=== PATIENT | male | born 1995 | race Caucasian/White ===

== ENCOUNTER 2020-02-11 12:39 | Emergency (ER) | payer OTHER ==
[~2020-02-11] VITALS: Ht 182.9 cm; Wt 113.4 kg
[2020-02-11 13:17] LABS: APPEARANCE,URINE Clear (CLEAR); BILIRUBIN,URINE SMALL (NEGATIVE); BLOOD, URINE Negative Ery/uL (NEGATIVE); COLOR,URINE Yellow (YELLOW); KETONES,URINE Negative (NEGATIVE); LEUKOCYTE ESTERASE ,URINE Negative (NEGATIVE); NITRITE, URINE Negative (NEGATIVE); PH,URINE 6.5 (5.0-8.0); PROTEIN,URINE Negative (NEGATIVE); UGLUCOSE Negative (NEGATIVE)
--- NOTE | 2020-02-11 13:19 | NUR ---
PATIENT REFUSED TO HAVE BLOOD WORKS DONE. DR. BENDER MADE AWARE. PATIENT GAVE A URINE SAMPLE.
[2020-02-11 13:20] LABS: RBC,URINE 0-2 /HPF (0-2); WBC,URINE 0-2 /HPF (0-3)
[2020-02-11 13:21] LABS: BACTERIA,URINE Rare /HPF (None Seen); SQUAMOUS EPITHELIAL CELL,UR Rare /HPF (None Seen)
[2020-02-11 13:40] VITALS: BP 106/48
== END 2020-02-11 13:40 | disposition home or self-care (01) ==
LOC: ER 12:49
DX: F19.10 Other psychoactive substance abuse, uncomplicated (principal); F17.200 Nicotine dependence, unspecified, uncomplicated
CPT/HCPCS: 81000-TC

== ENCOUNTER 2020-02-16 20:46 | Emergency (ER) | payer OTHER ==
[~2020-02-16] VITALS: Ht 182.9 cm; Wt 99.8 kg
[2020-02-16] MEDS ORDERED: LORAZEPAM INJ 2 MG/ML VIAL IVP ONE (21:00)
[2020-02-16] MEDS ORDERED: IV NS 0.9% 1,000 ML BAG IV ONE (21:00)
[2020-02-16] MEDS ORDERED: LORAZEPAM INJ 2 MG/ML VIAL ONE (21:04)
--- NOTE | 2020-02-16 21:07 | NUR ---
PATIENT CAME TO ER BIB SURVEY CHIEF FROM [facility]. PATIENT IS AAOX4. PATIENT IS SOMNOLENT. PATIENT IS C/O RIGHT ANKLE PAIN, WITH SWELLING. PATIENT C/O LOWER BACK PAIN. BREATHING EVENLY AND UNLABORED ON ROOM AIR. NO SOB. CONENCTED TO THE MONITOR.
--- NOTE | 2020-02-16 21:08 | NUR ---
BLOOD DRAWN AND SEN TO THE LAB.
[2020-02-16 21:20] LABS: BASOPHILS # (AUTO) 0.1 /CMM (0.0-0.2); BASOPHILS % (AUTO) 0.9 % (0.0-2.0); EOSINOPHILS % (AUTO) 4.7 % (0.0-6.0); HEMATOCRIT 39 % (39-51); HEMOGLOBIN 13.5 g/dL (13.5-17.5); LYMPHOCYTES # (AUTO) 2.4 /CMM (0.8-4.8); LYMPHOCYTES % (AUTO) 31.6 % (20.0-44.0); MEAN CORPUSCULAR HGB CONC 35 g/dl (31.0-36.0); MEAN CORPUSCULAR VOLUME 86 fL (80-96); MONOCYTES # (AUTO) 0.4 /CMM (0.1-1.30); MONOCYTES % (AUTO) 5.5 % (2.0-12.0); NEUTROPHILS # (AUTO) 4.3 /CMM (1.8-8.9); NEUTROPHILS % (AUTO) 57.3 % (43.0-81.0); PLATELET COUNT (AUTO) 240 /CMM (150-450); RED BLOOD CELL COUNT(AUTO) 4.55 MIL/uL (4.5-6.0); WHITE BLOOD COUNT (AUTO) 7.5 K/uL (4.3-11.0)
[2020-02-16] MEDS ORDERED: THIAMINE HCL 100 MG TABLET ONE (21:20)
[2020-02-16] MEDS ORDERED: FOLIC ACID 1 MG TABLET ONE (21:20)
[2020-02-16] MEDS: KETOROLAC TROMETHAMINE INJ 30 MG/ML VIAL IV ONE ×2 (21:23→21:31)
[2020-02-16] MEDS ORDERED: KETOROLAC TROMETHAMINE INJ 30 MG/ML VIAL ONE (21:24)
[2020-02-16 21:27] LABS: CALCIUM, SERUM 8.9 mg/dL (8.5-10.1); CARBON DIOXIDE 27 mmol/L (21-32); CHLORIDE 103 mmol/L (98-107); CREATININE 1.2 mg/dL (0.6-1.3); GLUCOSE 109 mg/dL (74-106); POTASSIUM 3.3 mmol/L (3.5-5.1); SODIUM SERUM 138 mmol/L (136-145); UREA NITROGEN, BLOOD 11 mg/dL (7-18)
[2020-02-16] MEDS ORDERED: IBUPROFEN 400 MG TABLET ONE (21:29)
[2020-02-16] MEDS ORDERED: THIAMINE HCL 100 MG TABLET PO ONE (21:30)
[2020-02-16] MEDS ORDERED: FOLIC ACID 1 MG TABLET PO ONE (21:30)
[2020-02-16] MEDS ORDERED: IBUPROFEN 400 MG TABLET PO ONE (21:30)
[2020-02-16 21:34] LABS: ALANINE AMINOTRANSFERASE 54 U/L (12-78); ALBUMIN 3.7 g/dL (3.4-5.0); ALCOHOL, BLOOD < 3 mg/dL (0-0); ALKALINE PHOSPHATASE 138 U/L (46-116); ASPARTATE AMINOTRANSFERASE 34 U/L (15-37); BILIRUBIN,DIRECT 0.1 mg/dL (0.0-0.2); BILIRUBIN,TOTAL 0.3 mg/dL (0.2-1.0); MAGNESIUM 2.1 mg/dL (1.8-2.4); TOTAL PROTEIN, SERUM 7.7 g/dL (6.4-8.2)
--- NOTE | 2020-02-16 22:28 | NUR ---
TECH AT BEDSIDE FOR SPLINTING OF RIGHT FOOT.
--- NOTE | 2020-02-16 23:11 | NUR ---
Adeel pierre in [facility] - 02/16/20 at 2312 by YOLANDA Patient discharged to home in stable condition. Written and verbal after care instructions given. Patient verbalizes understanding of instruction.
--- NOTE | 2020-02-16 23:18 | NUR ---
PATIENT PICKED UP BY [facility]. DISCHARGE INSTRUCTIONS AND COPIES OF XRAY, LABS ARE PROVIDED TO THEM. PATIENT VERBALIZES UNDERSTANDING OF DISCHARGE INSTRUCTIONS.
--- NOTE | 2020-02-16 23:19 | NUR ---
IV removed. Catheter intact and site benign. Pressure and 4x4 applied to site. No bleeding noted.
--- NOTE | 2020-02-16 23:19 | NUR ---
Patient discharged to home in stable condition. Written and verbal after care instructions given. Patient verbalizes understanding of instruction.
[2020-02-16 23:21] VITALS: BP 108/43
== END 2020-02-16 23:23 | disposition home or self-care (01) ==
LOC: ER 20:48
DX: S82.831A Other fracture of upper and lower end of right fibula, initial encounter for closed fracture (principal); F10.239 Alcohol dependence with withdrawal, unspecified; Y90.0 Blood alcohol level of less than 20 mg/100 ml; W18.2XXA Fall in (into) shower or empty bathtub, initial encounter; Y93.89 Activity, other specified; Y92.89 Other specified places as the place of occurrence of the external cause; Y99.8 Other external cause status
CPT/HCPCS: 29515; 36415; 73610; 80048; 80076; 80320; 83735; 85025; 96361; 96374; 99284; J1885; J2060; J7030; G0480

== ENCOUNTER 2020-02-23 15:54 | Emergency (ER) | payer OTHER ==
[~2020-02-23] VITALS: Ht 182.9 cm; Wt 90.7 kg
[2020-02-23 16:36] VITALS: BP 124/67
--- NOTE | 2020-02-23 18:40 | NUR ---
patient refused to sign discharge paper, at bedside and aware
== END 2020-02-23 18:39 | disposition home or self-care (01) ==
LOC: ER 16:05
DX: F19.10 Other psychoactive substance abuse, uncomplicated (principal); R25.1 Tremor, unspecified; R56.9 Unspecified convulsions; F17.200 Nicotine dependence, unspecified, uncomplicated; F41.9 Anxiety disorder, unspecified; Z76.5 Malingerer [conscious simulation]